=== PATIENT | female | born 1955 ===

== ENCOUNTER 2017-08-21 14:53 | Emergency (ER) | payer OTHER, MEDICAID ==
[2017-08-21 14:53] VITALS: BMI 30.2
[2017-08-21 15:46] VITALS: TEMP 98.4; O2SAT 97
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
[2017-08-21] MEDS ORDERED: Lidocaine 5% Patch TD STA (17:12)
[2017-08-21] MEDS ORDERED: Lidocaine 5% Patch TD ONE (17:22)
--- NOTE | 2017-08-21 18:07 | CT ---
PROCEDURE: CT HEAD WITHOUT CONTRAST. HISTORY: TRAUMA COMPARISON: None available. TECHNIQUE: Axial computed tomography images were obtained through the head/brain without intravenous contrast. Radiation dose: Total exam DLP = 764.22 mGy-cm. This CT exam was performed using one or more of the following dose reduction techniques: Automated exposure control, adjustment of the mA and/or kV according to patient size, and/or use of iterative reconstruction technique. FINDINGS: HEMORRHAGE: No intracranial hemorrhage. BRAIN: No mass effect or edema. The mendez-white matter differentiation appears intact. Please note that MRI with diffusion imaging is more sensitive in the detection of acute ischemic event. VENTRICLES: No hydrocephalus. CALVARIUM: Unremarkable. PARANASAL SINUSES: Limited visualization of the right maxillary sinus appears completely opacified. MASTOID AIR CELLS: Unremarkable as visualized. No inflammatory changes. OTHER FINDINGS: None. IMPRESSION: Limited visualization of the right maxillary sinus appears completely opacified. Correlate clinically. No acute intracranial pathology identified.
[2017-08-21 18:18] VITALS: BP 160/90; PULSE 69; RESP 20
--- NOTE | 2017-08-21 18:25 | RAD ---
PROCEDURE: Radiographs of the Lumbar Spine. HISTORY: TRAUMA COMPARISON: No prior. FINDINGS: BONES: Normal alignment. No listhesis. No fracture. DISC SPACES: Unremarkable. OTHER FINDINGS: None. IMPRESSION: Unremarkable radiographs of the lumbar spine. Concordant results with the preliminary interpretation rendered by the emergency department physician procedure.
--- NOTE | 2017-08-21 18:30 | CT ---
CT cervical spine without IV contrast Indication: Trauma Comparison: None available. Technique: Axial computed tomography images were obtained of the cervical spine without the use of intravenous contrast. Coronal and sagittal reformatted images were created and reviewed. This CT exam was performed using 1 or more of the falling dose reduction techniques: Automated exposure control, adjustment of the MAA and/or kV according to patient size, and/or use of iterative reconstruction technique. Radiation dose: Total exam DLP = 393.66 mGy-cm. Findings: Straightening of the normal cervical lordosis may be related to muscle spasm or positioning. Multilevel degenerative changes including intervertebral disc space narrowing osteophyte formation. There is no evidence of acute fracture or subluxation. The prevertebral soft tissues and spinolaminar lines appear intact. The lateral masses are preserved. The dens tip is intact. There is proper alignment of the lateral masses of C1 with the C2 vertebral body. Included portions of the thyroid gland demonstrates 2 mm right lower pole hypodensity. Included portions of lung apices appear clear. Impression: No evidence of acute fracture or subluxation. Straightening of the normal cervical lordosis may be related to muscle spasm or positioning. Multilevel degenerative changes. 2 mm right lower pole thyroid hypodensity, too small to characterize.
== END 2017-08-21 18:36 | disposition home or self-care (01) ==
LOC: C.ER 14:53
DX: S13.9XXA Sprain of joints and ligaments of unspecified parts of neck, initial encounter (principal); S33.5XXA Sprain of ligaments of lumbar spine, initial encounter; V89.0XXA Person injured in unspecified motor-vehicle accident, nontraffic, initial encounter; Y92.481 Parking lot as the place of occurrence of the external cause
CPT/HCPCS: 70450; 72100; 72125; 96372; 99284; J1885

== ENCOUNTER 2018-05-08 03:23 | Inpatient (IN) | payer MEDICAID ==
[2018-05-08 03:23] VITALS: BMI 30.2
[2018-05-08] MEDS ORDERED: Sodium Chloride 0.9% 1,000 ML IV ONE ×2 (04:00→05:09)
[2018-05-08 04:08] LABS: BASO # 0.1 K/uL (0.0-0.2); BASO % 0.6 % (0.0-2.0); EOS # 0.4 K/uL (0.0-0.7); EOS % 3.2 % (0.0-4.0); HEMOGLOBIN 15.1 g/dL (11.0-16.0); LYMPH # 5.5 K/uL (1.0-4.3); LYMPH % 49.2 % (20.0-40.0); MEAN CELL VOLUME 87.7 fL (81.0-99.0); MEAN CORPUSCULAR HEMOGLOBIN 29.5 pg (27.0-31.0); MEAN CORPUSCULAR HGB CONC 33.6 g/dL (33.0-37.0); MEAN PLATELET VOLUME 9.3 fL (7.2-11.7); MONO # 0.7 K/uL (0.0-0.8); MONO % 6.6 % (0.0-10.0); NEUT # 4.5 K/uL (1.8-7.0); NEUT % 40.4 % (50.0-75.0); NRBC % 0.1 % (0.0-2.0); RBC 5.11 Mil/uL (3.80-5.20); WHITE BLOOD COUNT 11.1 K/uL (4.8-10.8)
[2018-05-08 04:09] LABS: ALB/GLOB RATIO 1.5 (1.0-2.1); ALBUMIN 4.9 g/dL (3.5-5.0); ALT/SGPT 46 U/L (9-52); AST/SGOT 34 U/L (14-36); BLOOD UREA NITROGEN 16 mg/dL (7-17); CALCIUM 9.8 mg/dl (8.6-10.4); GFR NON-AFRICAN AMERICAN > 60
[2018-05-08 04:40] LABS: T3 1.97 nmol/L (1.49-2.60)
[2018-05-08] MEDS ORDERED: Digoxin 500 mcg/2ml (0.5 mg/2ml) Inj IVP STA (05:08)
[2018-05-08] MEDS ORDERED: Digoxin 500 mcg/2ml (0.5 mg/2ml) Inj ONE (05:18)
[2018-05-08] MEDS ORDERED: Sodium Chloride 0.9% 1,000 ML ONE (05:19)
[2018-05-08 05:23] VITALS: PULSE 170
[2018-05-08] MEDS ORDERED: Metoprolol 1 mg/ml Inj IVP STA (05:44)
[2018-05-08] MEDS ORDERED: Metoprolol 1 mg/ml Inj ONE (05:51)
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
--- NOTE | 2018-05-08 06:33 | C.PDOC ---
History Of Present Illness 62 y/o female presents to the ED complaining of palpitations, with sudden onset upon waking up this morning. Denies any associated chest pain, dizziness, SOB, or other complaints. States this has never happened to her in the past. No fever. No cough. Time Seen by Provider: 05/08/18 03:38 Chief Complaint (Nursing): Palpitations History Per: Patient History/Exam Limitations: no limitations Onset/Duration Of Symptoms: Mins Current Symptoms Are (Timing): Still Present Exacerbating Factor(s): Pos: None Past Medical History Reviewed: Historical Data, Nursing Documentation, Vital Signs Vital Signs: Last Vital Signs Temp 98.2 F 05/08/18 03:31 Pulse 67 05/08/18 06:22 Resp 12 05/08/18 06:22 BP 92/47 L 05/08/18 06:22 Pulse Ox 99 05/08/18 06:22 - Medical History PMH: Cardia Arrhythmia, Diabetes, HTN, Hyperlipidemia Family History: States: No Known Family Hx - Social History Hx Tobacco Use: No Hx Alcohol Use: No Hx Substance Use: No - Immunization History Hx Tetanus Toxoid Vaccination: No Hx Influenza Vaccination: No Hx Pneumococcal Vaccination: No Review Of Systems Except As Marked, All Systems Reviewed And Found Negative. Constitutional: Negative for: Fever, Chills Eyes: Negative for: Vision Change Cardiovascular: Positive for: Palpitations. Negative for: Chest Pain Respiratory: Negative for: Cough, Shortness of Breath Gastrointestinal: Negative for: Vomiting, Diarrhea Neurological: Negative for: Headache, Dizziness Physical Exam - Physical Exam Appears: Non-toxic, No Acute Distress Skin: Normal Color, Warm, Dry Head: Atraumatic, Normacephalic Eye(s): bilateral: Normal Inspection, PERRL, EOMI Neck: Normal ROM, Supple Chest: Symmetrical Cardiovascular: Rhythm Regular (but tachycardic), No Murmur Respiratory: Normal Breath Sounds, No Rales, No Rhonchi, No Wheezing Gastrointestinal/Abdominal: Soft, No Tenderness, No Distention Extremity: Bilateral: Atraumatic, Normal Color And Temperature Neurological/Psych: Oriented x3, Normal Speech ED Course And Treatment - Laboratory Results Result Diagrams: 05/08/18 04:01 05/08/18 04:01 O2 Sat by Pulse Oximetry: 99 (RA) Pulse Ox Interpretation: Normal Critical Care Time - Critical Care Note Total Time (in mins): 60 Documented critical care: time excludes all time spent performing seperately billable procedures. Medical Decision Making Medical Decision Making: Impression: Palpitations Initial Plan: --EKG --labs --chest x-ray --IVF and Cardizem --peak flow pre/post neb Initial EKG: SVT at 215 bpm Second EKG: rapid A Fib at 126 bpm Progress: 6:00am Dr. Montenegro in the ED, evaluating patient at bedside. Accepts pt to telemetry. Patient given Cardizem drip, Lopressor IVP, and digoxin IVP. Disposition - Disposition Disposition: HOSPITALIZED Disposition Time: 05:10 Condition: GUARDED - Clinical Impression Clinical Impression: Rapid atrial fibrillation, SVT (supraventricular tachycardia), Palpitations - Scribe Statement The provider has reviewed the documentation as recorded by the Scribe (Loretta Staton) Provider Attestation: All medical record entries made by the Scribe were at my direction and personally dictated by me. I have reviewed the chart and agree that the record accurately reflects my personal performance of the history, physical exam, medical decision making, and the department course for this patient. I have also personally directed, reviewed, and agree with the discharge instructions and disposition.
[2018-05-08] MEDS: (Novolin R) Insulin Human Regular 100 units/ml vial SC SCH ×4 (07:30→21:43)
--- NOTE | 2018-05-08 08:48 | CP.PCM.PN ---
Subjective - Date & Time of Evaluation Date of Evaluation: 05/08/18 Time of Evaluation: 08:48 - Subjective Subjective: PGY-[address] House. Patient seen and examined in ED. Patient complains of palpitations and chronic L hip pain. Patient denies SOB, chest pain, diaphresis, nausea, vomiting, fever, and chills. Objective - Vital Signs/Intake and Output Vital Signs (last 24 hours): Temp Pulse Resp BP Pulse Ox 98.2 F 152 H 18 110/76 100 05/08/18 03:31 05/08/18 08:34 05/08/18 08:34 05/08/18 08:34 05/08/18 08:34 - Medications Medications: Current Medications Enoxaparin Sodium (Lovenox) 60 mg SC Q12 DEVIN Diltiazem HCl 125 mg/ Dextrose 125 mls @ 5 mls/hr IV .Q24H DEVIN Last Admin: 05/08/18 08:07 Dose: 5 mls/hr Diltiazem HCl 125 mg/ Dextrose 125 mls @ 5 mls/hr IV .Q24H DEVIN; Protocol Last Admin: 05/08/18 08:43 Dose: Not Given Insulin Human Regular (Novolin R) 0 unit SC ACHS DEVIN; Protocol Last Admin: 05/08/18 07:30 Dose: Not Given Metoprolol Tartrate (Lopressor) 25 mg PO QID [facility] [id number] Ethyl Esters (Lovaza) 1 gm PO DAILY DEVIN Pantoprazole Sodium (Protonix Ec Tab) 40 mg PO DAILY DEVIN - Labs Labs: 05/08/18 04:01 05/08/18 04:01 - Head Exam Head Exam: ATRAUMATIC, NORMOCEPHALIC - Eye Exam Eye Exam: EOMI - ENT Exam ENT Exam: Mucous Membranes Moist - Neck Exam Neck Exam: Full ROM, Normal Inspection - Respiratory Exam Respiratory Exam: Clear to Ausculation Bilateral. absent: Rales, Rhonchi, Wheezes - Cardiovascular Exam Cardiovascular Exam: Irregular Rhythm, +S1, +S2 - GI/Abdominal Exam GI & Abdominal Exam: Soft. absent: Tenderness - Extremities Exam Extremities Exam: Full ROM, Tenderness. absent: Pedal Edema Additional comments: Left lumbar and L hip tenderness to palpation - Neurological Exam Neurological Exam: Alert, Awake, Oriented x3 - Psychiatric Exam Psychiatric exam: Normal Affect, Normal Mood - Skin Skin Exam: Diaphoretic, Intact, Normal Color, Warm Assessment and Plan - Assessment and Plan (Free Text) Plan: sun is a 62 year old female with past medical history of hypertension, diabetes mellitus, arthritis who presented to the emergency room for sudden onset of palpitations. Management as per ICU.
--- NOTE | 2018-05-08 08:56 | RAD ---
Chest x-ray single frontal view HISTORY: Chest pain. COMPARISON: None available. Findings: Patchy increased markings at the lung bases. Clinical correlation. Mild cardiomegaly. Venous congestion. Calcification at the aortic knob. Degenerative changes in the osseous structures. Impression: Patchy increased markings at the lung bases. Clinical correlation. Mild cardiomegaly. Venous congestion. Calcification at the aortic knob.
[2018-05-08] MEDS: Pantoprazole 40 mg EC Tab PO SCH (09:56)
[2018-05-08] MEDS: Omega-3-Acid Ethyl Esters 1 GM Cap PO SCH (09:56)
[2018-05-08] MEDS: Enoxaparin 60 mg Syringe SC SCH ×2 (09:56→22:13)
[2018-05-08] MEDS ORDERED: Enoxaparin 30 mg Syringe SC SCH (10:00)
--- NOTE | 2018-05-08 12:08 | CP.PCM.CON ---
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 she was started on metoprolol (dose?) and felt her symptoms were controlled. She didnt refill her last perscription and did not return to her [employer]. Symptoms returned soon after. %days since last metoprolol dose. pt complains of back pain and hip pain at present time. Denies CP or SOB at this time. Pt denies radiating pains to the jaw/ shoulder. Denies dizziness, headache, fever, chills, nausea, vomiting, sweating, abd pain. 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 Family History: Mother - Hypertension, TAVR, arrhythmia; Father - from [place] 26 years ago Past Patient History - Past Medical History & Family History Past Medical History?: Yes - Past Social History Smoking Status: Never Smoked - CARDIAC Hx Cardia Arrhythmia: Yes Hx Hypertension: Yes - PULMONARY Hx Respiratory Disorders: No - NEUROLOGICAL Hx Neurological Disorder: No - HEENT Hx HEENT Problems: Yes Other/Comment: HX: TORN EAR LOBE FROM EARING-REPAIRED - ENDOCRINE/METABOLIC Hx Endocrine Disorders: Yes Hx Diabetes Mellitus Type 2: Yes - INTEGUMENTARY Hx Dermatological Problems: Yes Other/Comment: HX: MASS OF NECK - PSYCHIATRIC Hx Substance Use: No - SURGICAL HISTORY Hx Surgeries: Yes Hx Hysterectomy: Yes Other/Comment: HX: REPAIR TORN EAR LOBE-PT. NOT SURE WHICH SIDE. - ANESTHESIA Hx Anesthesia: Yes Hx Anesthesia Reactions: No Hx Malignant Hyperthermia: No Meds Allergies/Adverse Reactions: Allergies Allergy/AdvReac Type Severity Reaction Status Date / Time No Known Allergies Allergy Verified 05/08/18 03:39 - Medications Medications: Current Medications Cyclobenzaprine HCl (Flexeril) 5 mg PO HS PRN PRN Reason: Muscle spasm Enoxaparin Sodium (Lovenox) 60 mg SC Q12 [facility] Last Admin: 05/08/18 09:56 Dose: 60 mg Diltiazem HCl 125 mg/ Dextrose 125 mls @ 5 mls/hr IV .Q24H [facility] Last Admin: 05/08/18 08:07 Dose: 5 mls/hr Insulin Human Regular (Novolin R) 0 unit SC ACHS [facility]; Protocol Last Admin: 05/08/18 07:30 Dose: Not Given Metoprolol Tartrate (Lopressor) 25 mg PO QID [facility] Last Admin: 05/08/18 09:57 Dose: 25 mg Qxeob-6-Nqnc Ethyl Esters (Lovaza) 1 gm PO DAILY [facility] Last Admin: 05/08/18 09:56 Dose: 1 gm Pantoprazole Sodium (Protonix Ec Tab) 40 mg PO DAILY [facility] Last Admin: 05/08/18 09:56 Dose: 40 mg Physical Exam - Constitutional Appears: Well, Non-toxic, No Acute Distress - Head Exam Head Exam: ATRAUMATIC, NORMAL INSPECTION - Eye Exam Eye Exam: EOMI, Normal appearance Pupil Exam: NORMAL ACCOMODATION - ENT Exam ENT Exam: Mucous Membranes Moist - Neck Exam Neck exam: Positive for: Normal Inspection. Negative for: Tenderness, Thyromegaly - Respiratory Exam Respiratory Exam: Clear to Auscultation Bilateral, NORMAL BREATHING PATTERN. absent: Wheezes, Respiratory Distress - Cardiovascular Exam Cardiovascular Exam: Irregular Rhythm, +S1, +S2 - GI/Abdominal Exam GI & Abdominal Exam: Soft. absent: Tenderness - Extremities Exam Extremities exam: Positive for: normal inspection, pedal pulses present. Nega tive for: pedal edema - Back Exam Back exam: muscle spasm (L/s mee paraspin spasm), paraspinal tenderness - Neurological Exam Neurological exam: Alert, CN II-XII Intact, Oriented x3 - Psychiatric Exam Psychiatric exam: Normal Affect, Normal Mood - Skin Skin Exam: Dry, Normal Color, Warm Results - Vital Signs Recent Vital Signs: Last Vital Signs Temp 98 F 05/08/18 11:25 Pulse 122 H 05/08/18 11:25 Resp 18 05/08/18 11:25 BP 92/68 L 10/02/18 11:25 Pulse Ox 99 05/08/18 11:25 - Labs Result Diagrams: 05/08/18 04:01 05/08/18 04:01 Labs: Laboratory Results - last 24 hr 05/08/18 05/08/18 05/08/18 04:01 04:01 07:10 WBC 11.1 H RBC 5.11 Hgb 15.1 Hct 44.8 MCV 87.7 MCH 29.5 MCHC 33.6 RDW 13.0 Plt Count 341 MPV 9.3 Neut % (Auto) 40.4 L Lymph % (Auto) 49.2 H [place] % (Auto) 6.6 Eos % (Auto) 3.2 Baso % (Auto) 0.6 Neut # (Auto) 4.5 Lymph # (Auto) 5.5 H [place] # (Auto) 0.7 Eos # (Auto) 0.4 Baso # (Auto) 0.1 Sodium 142 Potassium 4.0 Chloride 103 Carbon Dioxide 25 Anion Gap 19 BUN 16 Creatinine 0.6 L Est GFR ( Amer) > 60 Est GFR (Non-Af Amer) > 60 POC Glucose (mg/dL) 108 Random Glucose 116 H Calcium 9.8 Magnesium 2.2 Total Bilirubin 0.4 AST 34 ALT 46 Alkaline Phosphatase 118 Troponin I < 0.0120 Total Protein 8.2 Albumin 4.9 Globulin 3.3 Albumin/Globulin Ratio 1.5 Total T3 1.97 TSH 3rd Generation 6.97 H Assessment & Plan - Assessment and Plan (Free Text) Assessment: 62yo F with Sick sinus syndrome. Plan: Neuro: -AAOx3 -monitor mental status Pulm: -Maintain spO2 >90% -Nasal cannula PRN CardioVasc: -Dr Dowd recs: 1. The patient now is in nsr, with frequent atria tachycardia.. Will start oral cardezem. previous echo was normal. ASA for now, 325 mg 2. Pt is advised to have a sleep study after d/c from hospital. 3. If medication cannot control her arrhythmia, then she will be offered ablation. -Cardizem 60mg PO QID -currently hemodynamically stable -f/u EKG Heme: -Monitor H/H Renal: -monitor I&O -monitor and repleat electrolytes Endo: -Maintain euglycemia 140-180 blood sugar GI: -ptx PO -Pain control with Ketorolac and Lidoderm patches -HHD ID: -Afebrile -no leukocytosis DVT PPX: -SCDs -Lovenox 60mg q12 <Jasvir Patel - Last Filed: 05/08/18 18:58> Meds - Medications Medications: Current Medications Diltiazem HCl (Cardizem) 60 mg PO QID [facility] Last Admin: 05/08/18 17:06 Dose: 60 mg Enoxaparin Sodium (Lovenox) 60 mg SC Q12 [facility] Last Admin: 05/08/18 09:56 Dose: 60 mg Insulin Human Regular (Novolin R) 0 unit SC ACHS [facility]; Protocol Last Admin: 05/08/18 16:30 Dose: Not Given Ketorolac Tromethamine (Toradol) 30 mg IVP Q6 PRN PRN Reason: FOR PAIN Lidocaine (Lidoderm) 2 ea TD DAILY [facility] Last Admin: 05/08/18 17:47 Dose: 2 ea [id number]-8-[id number] Ethyl Esters (Lovaza) 1 gm PO DAILY [facility] Last Admin: 05/08/18 09:56 Dose: 1 gm Pantoprazole Sodium (Protonix Ec Tab) 40 mg PO DAILY [facility] Last Admin: 05/08/18 09:56 Dose: 40 mg Results - Vital Signs Recent Vital Signs: Last Vital Signs Temp 98.7 F 05/08/18 16:00 Pulse 95 H 05/08/18 17:55 Resp 16 05/08/18 17:55 BP 114/83 05/08/18 17:55 Pulse Ox 100 05/08/18 17:55 - Labs Result Diagrams: 05/08/18 04:01 05/08/18 04:01 Labs: Laboratory Results - last 24 hr 05/08/18 05/08/18 05/08/18 04:01 04:01 07:10 WBC 11.1 H RBC 5.11 Hgb 15.1 Hct 44.8 MCV 87.7 MCH 29.5 MCHC 33.6 RDW 13.0 Plt Count 341 MPV 9.3 Neut % (Auto) 40.4 L Lymph % (Auto) 49.2 H [place] % (Auto) 6.6 Eos % (Auto) 3.2 Baso % (Auto) 0.6 Neut # (Auto) 4.5 Lymph # (Auto) 5.5 H [place] # (Auto) 0.7 Eos # (Auto) 0.4 Baso # (Auto) 0.1 PT INR APTT D-Dimer, Quantitative Sodium 142 Potassium 4.0 Chloride 103 Carbon Dioxide 25 Anion Gap 19 BUN 16 Creatinine 0.6 L Est GFR ( Amer) > 60 Est GFR (Non-Af Amer) > 60 POC Glucose (mg/dL) 108 Random Glucose 116 H Calcium 9.8 Magnesium 2.2 Total Bilirubin 0.4 AST 34 ALT 46 Alkaline Phosphatase 118 Troponin I < 0.0120 Total Protein 8.2 Albumin 4.9 Globulin 3.3 Albumin/Globulin Ratio 1.5 Total T3 1.97 TSH 3rd Generation 6.97 H 05/08/18 05/08/18 11:47 12:41 WBC RBC Hgb Hct MCV MCH MCHC RDW Plt Count MPV Neut % (Auto) Lymph % (Auto) [place] % (Auto) Eos % (Auto) Baso % (Auto) Neut # (Auto) Lymph # (Auto) [place] # (Auto) Eos # (Auto) Baso # (Auto) PT 12.5 H INR 1.1 APTT 42 H D-Dimer, Quantitative < 200 Sodium Potassium Chloride Carbon Dioxide Anion Gap BUN Creatinine Est GFR ( Amer) Est GFR (Non-Af Amer) POC Glucose (mg/dL) 121 H Random Glucose Calcium Magnesium Total Bilirubin AST ALT Alkaline Phosphatase Troponin I Total Protein Albumin Globulin Albumin/Globulin Ratio Total T3 TSH 3rd Generation Attending/Attestation - Attestation I have personally seen and examined this patient.: Yes I have fully participated in the care of the patient.: Yes I have reviewed all pertinent clinical information: Yes Notes (Text): 05/08/18 18:57 Patient seen and examined 62-year-old female admitted to ICU with sick sinus syndrome Started on by mouth Cardizem by cardiology Hemodynamically stable Echocardiogram Transfer to telemetry
[2018-05-08 12:11] LABS: INR 1.1; PARTIAL THROMBOPLASTIN TIME 42 SECONDS (21-34); PROTHROMBIN TIME 12.5 SECONDS (9.7-12.2)
[2018-05-08 12:12] LABS: D DIMER < 200 ng/mlDDU (0-243)
--- NOTE | 2018-05-08 14:23 | CP.PCM.CON ---
History of Present Illness - History of Present Illness History of Present Illness: 62 year old woman who has seen Dr Joshi in the office for a complaint of palpitations. Work up so far demonstrated a normal echo and stress test, and no arrhythmia documented. The patent drinks occasional ETOH on the weekends, smokes a ladies' cigar every now and then, and has prediabetes. Last night, she developed very rapid fast heart beats, the likes of which she has never experienced before. In the ER, rapid atrial tachycardia was seen, and she received IV cardezem. Due to low BP the drip was stopped. Today she feels better, and the monitor shows nsr with frequent short atrial tach runs. Some brief runs demonstrate mobitz I av block, without prolonged pauses Pt claims that she does not have htn. She snores at night. has a thick neck is overweight. Review of Systems - Review of Systems All systems: reviewed and no additional remarkable complaints except (as above) Past Patient History - Past Medical History & Family History Past Medical History?: Yes - Past Social History Smoking Status: Never Smoked - CARDIAC Hx Cardia Arrhythmia: Yes Hx Hypertension: Yes - PULMONARY Hx Respiratory Disorders: No - NEUROLOGICAL Hx Neurological Disorder: No - HEENT Hx HEENT Problems: Yes Other/Comment: HX: TORN EAR LOBE FROM EARING-REPAIRED - ENDOCRINE/METABOLIC Hx Endocrine Disorders: Yes Hx Diabetes Mellitus Type 2: Yes - INTEGUMENTARY Hx Dermatological Problems: Yes Other/Comment: HX: MASS OF NECK - PSYCHIATRIC Hx Substance Use: No - SURGICAL HISTORY Hx Surgeries: Yes Hx Hysterectomy: Yes Other/Comment: HX: REPAIR TORN EAR LOBE-PT. NOT SURE WHICH SIDE. - ANESTHESIA Hx Anesthesia: Yes Hx Anesthesia Reactions: No Hx Malignant Hyperthermia: No Meds Allergies/Adverse Reactions: Allergies Allergy/AdvReac Type Severity Reaction Status Date / Time No Known Allergies Allergy Verified 05/08/18 03:39 - Medications Medications: Current Medications Cyclobenzaprine HCl (Flexeril) 5 mg PO HS PRN PRN Reason: Muscle spasm Enoxaparin Sodium (Lovenox) 60 mg SC Q12 [facility] Last Admin: 05/08/18 09:56 Dose: 60 mg Diltiazem HCl 125 mg/ Dextrose 125 mls @ 5 mls/hr IV .Q24H [facility] Last Admin: 05/08/18 08:07 Dose: 5 mls/hr Insulin Human Regular (Novolin R) 0 unit SC ACHS [facility]; Protocol Last Admin: 05/08/18 12:41 Dose: Not Given Metoprolol Tartrate (Lopressor) 25 mg PO QID [facility] Last Admin: 05/08/18 09:57 Dose: 25 mg Uyqdj-6-Dbxo Ethyl Esters (Lovaza) 1 gm PO DAILY [facility] Last Admin: 05/08/18 09:56 Dose: 1 gm Pantoprazole Sodium (Protonix Ec Tab) 40 mg PO DAILY [facility] Last Admin: 05/08/18 09:56 Dose: 40 mg Physical Exam - Constitutional Appears: Well - Head Exam Head Exam: ATRAUMATIC - Eye Exam Eye Exam: EOMI, Normal appearance - ENT Exam ENT Exam: Mucous Membranes Moist - Respiratory Exam Respiratory Exam: Clear to Auscultation Bilateral - Cardiovascular Exam Cardiovascular Exam: Irregular Rhythm - GI/Abdominal Exam GI & Abdominal Exam: Normal Bowel Sounds - Exam External exam: NORMAL EXTERNAL EXAM - Extremities Exam Extremities exam: Positive for: full ROM, normal inspection - Back Exam Back exam: NORMAL INSPECTION - Neurological Exam Neurological exam: Alert, Oriented x3, Reflexes Normal - Psychiatric Exam Psychiatric exam: Normal Affect, Normal Mood - Skin Skin Exam: Normal Color Results - Vital Signs Recent Vital Signs: Last Vital Signs Temp 98 F 05/08/18 12:07 Pulse 79 05/08/18 12:07 Resp 18 05/08/18 12:07 BP 108/74 05/08/18 12:07 Pulse Ox 99 05/08/18 12:07 - Labs Result Diagrams: 05/08/18 04:01 05/08/18 04:01 Labs: Laboratory Results - last 24 hr 05/08/18 05/08/18 05/08/18 04:01 04:01 07:10 WBC 11.1 H RBC 5.11 Hgb 15.1 Hct 44.8 MCV 87.7 MCH 29.5 MCHC 33.6 RDW 13.0 Plt Count 341 MPV 9.3 Neut % (Auto) 40.4 L Lymph % (Auto) 49.2 H [place] % (Auto) 6.6 Eos % (Auto) 3.2 Baso % (Auto) 0.6 Neut # (Auto) 4.5 Lymph # (Auto) 5.5 H [place] # (Auto) 0.7 Eos # (Auto) 0.4 Baso # (Auto) 0.1 PT INR APTT D-Dimer, Quantitative Sodium 142 Potassium 4.0 Chloride 103 Carbon Dioxide 25 Anion Gap 19 BUN 16 Creatinine 0.6 L Est GFR ( Amer) > 60 Est GFR (Non-Af Amer) > 60 POC Glucose (mg/dL) 108 Random Glucose 116 H Calcium 9.8 Magnesium 2.2 Total Bilirubin 0.4 AST 34 ALT 46 Alkaline Phosphatase 118 Troponin I < 0.0120 Total Protein 8.2 Albumin 4.9 Globulin 3.3 Albumin/Globulin Ratio 1.5 Total T3 1.97 TSH 3rd Generation 6.97 H 05/08/18 05/08/18 11:47 12:41 WBC RBC Hgb Hct MCV MCH MCHC RDW Plt Count MPV Neut % (Auto) Lymph % (Auto) [place] % (Auto) Eos % (Auto) Baso % (Auto) Neut # (Auto) Lymph # (Auto) [place] # (Auto) Eos # (Auto) Baso # (Auto) PT 12.5 H INR 1.1 APTT 42 H D-Dimer, Quantitative < 200 Sodium Potassium Chloride Carbon Dioxide Anion Gap BUN Creatinine Est GFR ( Amer) Est GFR (Non-Af Amer) POC Glucose (mg/dL) 121 H Random Glucose Calcium Magnesium Total Bilirubin AST ALT Alkaline Phosphatase Troponin I Total Protein Albumin Globulin Albumin/Globulin Ratio Total T3 TSH 3rd Generation - EKG Data EKG Interpreted by: Myself EKG shows normal: Sinus rhythm Assessment & Plan - Assessment and Plan (Free Text) Assessment: 1. The patient now is in nsr, with frequent atria tachycardia.. Will start oral cardezem. previous echo was normal. ASA for now, 3325 mg 2. Pt is advised to have a sleep study after d/c from hospital. 3. If medication cannot control her arrhythmia, then she will be offered ablation.
[2018-05-08] MEDS: Lidocaine 5% Patch TD SCH (17:47)
[2018-05-09] MEDS ORDERED: Sodium Chloride 0.9% 1,000 ML IV ONE (01:39)
[2018-05-09] MEDS ORDERED: DOPamine 400mg/250ml D5W 400 MG/250 ML BAG IV PRN ×2 (01:39→01:41)
[2018-05-09 03:26] LABS: BASO # 0.1 K/uL (0.0-0.2); BASO % 0.6 % (0.0-2.0); EOS # 0.3 K/uL (0.0-0.7); EOS % 2.7 % (0.0-4.0); HEMOGLOBIN 12.7 g/dL (11.0-16.0); LYMPH # 3.5 K/uL (1.0-4.3); LYMPH % 34.2 % (20.0-40.0); MEAN CELL VOLUME 88.6 fL (81.0-99.0); MEAN CORPUSCULAR HEMOGLOBIN 29.8 pg (27.0-31.0); MEAN CORPUSCULAR HGB CONC 33.6 g/dL (33.0-37.0); MONO # 0.7 K/uL (0.0-0.8); MONO % 6.5 % (0.0-10.0); NEUT # 5.8 K/uL (1.8-7.0); RBC 4.28 Mil/uL (3.80-5.20); RED CELL DISTRIBUTION WIDTH 12.8 % (11.5-14.5); WHITE BLOOD COUNT 10.3 K/uL (4.8-10.8)
[2018-05-09] MEDS ORDERED: Sodium Chloride 0.9% 1,000 ML IV SCH (03:30)
[2018-05-09 03:32] LABS: LDL CHOLESTEROL 95 mg/dL (0-129)
[2018-05-09 03:45] LABS: ALB/GLOB RATIO 1.3 (1.0-2.1); ALBUMIN 3.7 g/dL (3.5-5.0); ALT/SGPT 42 U/L (9-52); AST/SGOT 23 U/L (14-36); BLOOD UREA NITROGEN 15 mg/dL (7-17); CALCIUM 8.8 mg/dl (8.6-10.4); GFR NON-AFRICAN AMERICAN > 60; HDL CHOLESTEROL 33 mg/dL (30-70)
[2018-05-09] MEDS: (Novolin R) Insulin Human Regular 100 units/ml vial SC SCH ×4 (07:30→21:36)
[2018-05-09] MEDS: Enoxaparin 60 mg Syringe SC SCH (10:01)
[2018-05-09] MEDS: Pantoprazole 40 mg EC Tab PO SCH (10:01)
[2018-05-09] MEDS: Lidocaine 5% Patch TD SCH (10:01)
[2018-05-09] MEDS: Omega-3-Acid Ethyl Esters 1 GM Cap PO SCH (10:01)
--- NOTE | 2018-05-09 10:13 | CP.PCM.PN ---
Subjective - Date & Time of Evaluation Date of Evaluation: 05/09/18 Time of Evaluation: 10:09 - Subjective Subjective: The pt was hypotensive last night, BP systolic 60, with bradycrdia in the 40's A search for the ecg strips from this time has proved futile. pt received IV dopamine and pt had recurrent A tach. Pt is now in NSR, off dopaine. Echo is normal. Objective - Vital Signs/Intake and Output Vital Signs (last 24 hours): Temp Pulse Resp BP Pulse Ox 98.3 F 65 14 126/74 100 05/09/18 08:00 05/09/18 08:02 05/09/18 08:02 05/09/18 08:02 05/09/18 08:02 Intake and Output: 05/09/18 05/09/18 06:59 18:59 Intake Total 1433.2 200 Output Total 500 400 Balance 933.2 -200 - Medications Medications: Current Medications Enoxaparin Sodium (Lovenox) 60 mg SC Q12 [facility] Last Admin: 05/09/18 10:01 Dose: 60 mg Dopamine HCl/Dextrose (Dopamine 400mg/250ml D5w) 400 mg in 250 mls @ 7.144 mls/hr IV .Q24H [facility]; Protocol PRN Reason: PRN Last Titration: 05/09/18 03:00 Dose: 0 mcg/kg/min, 0 mls/hr Sodium Chloride (Sodium Chloride 0.9%) 1,000 mls @ 100 mls/hr IV .Q10H [facility] Last Admin: 05/09/18 03:00 Dose: 100 mls/hr Insulin Human Regular (Novolin R) 0 unit SC ACHS [facility]; Protocol Last Admin: 05/09/18 07:30 Dose: Not Given Ketorolac Tromethamine (Toradol) 30 mg IVP Q6 PRN PRN Reason: FOR PAIN Lidocaine (Lidoderm) 2 ea TD DAILY [facility] Last Admin: 05/09/18 10:01 Dose: 2 ea Aumlk-4-Lnco Ethyl Esters (Lovaza) 1 gm PO DAILY [facility] Last Admin: 05/09/18 10:01 Dose: 1 gm Pantoprazole Sodium (Protonix Ec Tab) 40 mg PO DAILY [facility] Last Admin: 05/09/18 10:01 Dose: 40 mg - Labs Labs: 05/09/18 03:06 05/09/18 03:06 PT 12.5 SECONDS (9.7-12.2) H 05/08/18 11:47 INR 1.1 05/08/18 11:47 APTT 42 SECONDS (21-34) H 05/08/18 11:47 - Constitutional Appears: Well - Eye Exam Eye Exam: EOMI - ENT Exam ENT Exam: Mucous Membranes Moist - Neck Exam Neck Exam: Full ROM - Respiratory Exam Respiratory Exam: NORMAL BREATHING PATTERN - Cardiovascular Exam Cardiovascular Exam: REGULAR RHYTHM - GI/Abdominal Exam GI & Abdominal Exam: Normal Bowel Sounds - Extremities Exam Extremities Exam: Full ROM, Normal Inspection - Back Exam Back Exam: NORMAL INSPECTION - Neurological Exam Neurological Exam: Alert, Awake, Normal Gait, Oriented x3 - Psychiatric Exam Psychiatric exam: Normal Affect Assessment and Plan - Assessment and Plan (Free Text) Assessment: 1. Atrial tachycardia, then bradycardia with hypotension. Cannot control patients rhythm with meds. Pt will agree to transfer for ablation. Stop all cardiac meds for now pending EP mapping.
--- NOTE | 2018-05-09 12:12 | CP.CCUPN ---
<Pedro Almendarez - Last Filed: 05/09/18 18:02> CCU Subjective - Physician Review Subjective (Free Text): 05/09/18 12:08 Pt seen and examined at [facility]. pt has no new complaints this morning. Pt had a hypotensive episode last night 60/47 bp requiring one dose of Dopa 400 @ 3mc. Pt responded with RVRs so dopa was stopped after 1 dose. pt feeling well now, denies cp sob nv fc diZZINESS. CCU Objective - Vital Signs / Intake & Output Vital Signs (Last 4 hours): Vital Signs Pulse Resp BP Pulse Ox 05/09/18 11:02 72 16 129/92 H 97 05/09/18 11:00 68 13 100 05/09/18 10:32 74 16 132/83 100 05/09/18 10:02 80 19 149/83 100 05/09/18 10:00 77 17 100 05/09/18 09:58 74 14 145/82 100 05/09/18 09:32 75 135/72 100 05/09/18 09:02 87 17 130/76 100 05/09/18 08:32 77 22 127/85 100 Intake and Output (Last 8hrs): Intake & Output 05/08/18 05/09/18 05/09/18 22:59 06:59 14:59 Intake Total 480 1313.2 760 Output Total 500 1550 Balance 480 813.2 -790 Weight 143 lb 9.6 oz Intake: IV 7.1 Intake, IV Amount 1306.1 300 Left Antecubital 1299 300 Right Forearm 7.1 Oral 480 0 460 Output: Urine 500 1550 Urine, Voided 500 1550 Other: # Voids Urine, Voided 0 1 1 - Physical Exam Other physical findings (Free Text): - Constitutional Appears: Well, Non-toxic, No Acute Distress - Head Exam Head Exam: ATRAUMATIC, NORMAL INSPECTION - Eye Exam Eye Exam: EOMI, Normal appearance Pupil Exam: NORMAL ACCOMODATION - ENT Exam ENT Exam: Mucous Membranes Moist - Neck Exam Neck exam: Positive for: Normal Inspection. Negative for: Tenderness, Thyromegaly - Respiratory Exam Respiratory Exam: Clear to Auscultation Bilateral, NORMAL BREATHING PATTERN. absent: Wheezes, Respiratory Distress - Cardiovascular Exam Cardiovascular Exam: Irregular Rhythm, +S1, +S2 - GI/Abdominal Exam GI & Abdominal Exam: Soft. absent: Tenderness - Extremities Exam Extremities exam: Positive for: normal inspection, pedal pulses present. Negative for: pedal edema - Back Exam Back exam: muscle spasm (L/s mee paraspin spasm), paraspinal tenderness - Neurological Exam Neurological exam: Alert, CN II-XII Intact, Oriented x3 - Psychiatric Exam Psychiatric exam: Normal Affect, Normal Mood - Skin Skin Exam: Dry, Normal Color, Warm - Medications Active Medications: Active Medications Generic Name Dose Route Start Last Admin Trade Name Freq PRN Reason Stop Dose Admin Enoxaparin Sodium 60 mg 05/08/18 10:00 05/09/18 10:01 Lovenox SC 60 mg Q12 DEVIN Administration Dopamine HCl/Dextrose 400 mg in 250 mls @ 7.144 mls/hr 05/09/18 01:41 05/09/18 03:00 Dopamine 400mg/250ml D5w IV 0 mcg/kg/min .Q24H PRN 0 mls/hr PRN Titration Protocol 3 MCG/KG/MIN Insulin Human Regular 0 unit 05/08/18 07:30 05/09/18 07:30 Novolin R SC Not Given ACHS DEVIN Protocol Ketorolac Tromethamine 30 mg 05/08/18 18:00 Toradol IVP Q6 PRN FOR PAIN Lidocaine 2 ea 05/08/18 17:15 05/09/18 10:01 Lidoderm TD 2 ea DAILY DEVIN Administration Nlrbk-4-Ibig Ethyl Esters 1 gm 05/08/18 10:00 05/09/18 10:01 Lovaza PO 1 gm DAILY DEVIN Administration Pantoprazole Sodium 40 mg 05/08/18 10:00 05/09/18 10:01 Protonix Ec Tab PO 40 mg DAILY DEVIN Administration - Patient Studies Lab Studies: Lab Studies 05/09/18 05/09/18 05/09/18 Range/Units 11:14 07:53 07:23 WBC (4.8-10.8) K/uL RBC (3.80-5.20) Mil/uL Hgb (11.0-16.0) g/dL Hct (34.0-47.0) % MCV (81.0-99.0) fL MCH (27.0-31.0) pg MCHC (33.0-37.0) g/dL RDW (11.5-14.5) % Plt Count (130-400) K/uL MPV (7.2-11.7) fL Neut % (Auto) (50.0-75.0) % Lymph % (Auto) (20.0-40.0) % [place] % (Auto) (0.0-10.0) % Eos % (Auto) (0.0-4.0) % Baso % (Auto) (0.0-2.0) % Neut # (Auto) (1.8-7.0) K/uL Lymph # (Auto) (1.0-4.3) K/uL [place] # (Auto) (0.0-0.8) K/uL Eos # (Auto) (0.0-0.7) K/uL Baso # (Auto) (0.0-0.2) K/uL PT (9.7-12.2) SECONDS INR APTT (21-34) SECONDS D-Dimer, Quantitative (0-243) ng/mlDDU Sodium (132-148) mmol/L Potassium (3.6-5.2) mmol/L Chloride (98-107) mmol/L Carbon Dioxide (22-30) mmol/L Anion Gap (10-20) BUN (7-17) mg/dL Creatinine (0.7-1.2) mg/dL Est GFR ( Amer) Est GFR (Non-Af Amer) POC Glucose (mg/dL) 104 88 (65-110) mg/dL Random Glucose (65-105) mg/dL Hemoglobin A1c (4.2-6.5) % Calcium (8.6-10.4) mg/dl Phosphorus (2.5-4.5) mg/dL Magnesium (1.6-2.3) mg/dL Total Bilirubin (0.2-1.3) mg/dL AST (14-36) U/L ALT (9-52) U/L Alkaline Phosphatase (38-126) U/L Total Protein (6.3-8.3) g/dL Albumin (3.5-5.0) g/dL Globulin (2.2-3.9) gm/dL Albumin/Globulin Ratio (1.0-2.1) Triglycerides (0-149) mg/dL Cholesterol (0-199) mg/dL LDL Cholesterol Direct (0-129) mg/dL HDL Cholesterol (30-70) mg/dL Free T4 0.81 (0.78-2.19) ng/dL 05/09/18 05/09/18 05/09/18 Range/Units 03:06 03:06 03:06 WBC 10.3 (4.8-10.8) K/uL RBC 4.28 (3.80-5.20) Mil/uL Hgb 12.7 D (11.0-16.0) g/dL Hct 37.9 (34.0-47.0) % MCV 88.6 (81.0-99.0) fL MCH 29.8 (27.0-31.0) pg MCHC 33.6 (33.0-37.0) g/dL RDW 12.8 (11.5-14.5) % Plt Count 266 (130-400) K/uL MPV 9.0 (7.2-11.7) fL Neut % (Auto) 56.0 (50.0-75.0) % Lymph % (Auto) 34.2 (20.0-40.0) % [place] % (Auto) 6.5 (0.0-10.0) % Eos % (Auto) 2.7 (0.0-4.0) % Baso % (Auto) 0.6 (0.0-2.0) % Neut # (Auto) 5.8 (1.8-7.0) K/uL Lymph # (Auto) 3.5 (1.0-4.3) K/uL [place] # (Auto) 0.7 (0.0-0.8) K/uL Eos # (Auto) 0.3 (0.0-0.7) K/uL Baso # (Auto) 0.1 (0.0-0.2) K/uL PT (9.7-12.2) SECONDS INR APTT (21-34) SECONDS D-Dimer, Quantitative (0-243) ng/mlDDU Sodium 144 (132-148) mmol/L Potassium 4.5 (3.6-5.2) mmol/L Chloride 108 H (98-107) mmol/L Carbon Dioxide 27 (22-30) mmol/L Anion Gap 14 (10-20) BUN 15 (7-17) mg/dL Creatinine 0.8 (0.7-1.2) mg/dL Est GFR ( Amer) > 60 Est GFR (Non-Af Amer) > 60 POC Glucose (mg/dL) (65-110) mg/dL Random Glucose 121 H (65-105) mg/dL Hemoglobin A1c 5.9 (4.2-6.5) % Calcium 8.8 (8.6-10.4) mg/dl Phosphorus 3.1 (2.5-4.5) mg/dL Magnesium 2.1 (1.6-2.3) mg/dL Total Bilirubin 0.3 (0.2-1.3) mg/dL AST 23 (14-36) U/L ALT 42 (9-52) U/L Alkaline Phosphatase 74 (38-126) U/L Total Protein 6.5 (6.3-8.3) g/dL Albumin 3.7 (3.5-5.0) g/dL Globulin 2.8 (2.2-3.9) gm/dL Albumin/Globulin Ratio 1.3 (1.0-2.1) Triglycerides 253 H (0-149) mg/dL Cholesterol 159 (0-199) mg/dL LDL Cholesterol Direct 95 (0-129) mg/dL HDL Cholesterol 33 (30-70) mg/dL Free T4 (0.78-2.19) ng/dL 05/08/18 05/08/18 05/08/18 Range/Units 21:14 16:16 12:41 WBC (4.8-10.8) K/uL RBC (3.80-5.20) Mil/uL Hgb (11.0-16.0) g/dL Hct (34.0-47.0) % MCV (81.0-99.0) fL MCH (27.0-31.0) pg MCHC (33.0-37.0) g/dL RDW (11.5-14.5) % Plt Count (130-400) K/uL MPV (7.2-11.7) fL Neut % (Auto) (50.0-75.0) % Lymph % (Auto) (20.0-40.0) % [place] % (Auto) (0.0-10.0) % Eos % (Auto) (0.0-4.0) % Baso % (Auto) (0.0-2.0) % Neut # (Auto) (1.8-7.0) K/uL Lymph # (Auto) (1.0-4.3) K/uL [place] # (Auto) (0.0-0.8) K/uL Eos # (Auto) (0.0-0.7) K/uL Baso # (Auto) (0.0-0.2) K/uL PT (9.7-12.2) SECONDS INR APTT (21-34) SECONDS D-Dimer, Quantitative (0-243) ng/mlDDU Sodium (132-148) mmol/L Potassium (3.6-5.2) mmol/L Chloride (98-107) mmol/L Carbon Dioxide (22-30) mmol/L Anion Gap (10-20) BUN (7-17) mg/dL Creatinine (0.7-1.2) mg/dL Est GFR ( Amer) Est GFR (Non-Af Amer) POC Glucose (mg/dL) 108 101 121 H (65-110) mg/dL Random Glucose (65-105) mg/dL Hemoglobin A1c (4.2-6.5) % Calcium (8.6-10.4) mg/dl Phosphorus (2.5-4.5) mg/dL Magnesium (1.6-2.3) mg/dL Total Bilirubin (0.2-1.3) mg/dL AST (14-36) U/L ALT (9-52) U/L Alkaline Phosphatase (38-126) U/L Total Protein (6.3-8.3) g/dL Albumin (3.5-5.0) g/dL Globulin (2.2-3.9) gm/dL Albumin/Globulin Ratio (1.0-2.1) Triglycerides (0-149) mg/dL Cholesterol (0-199) mg/dL LDL Cholesterol Direct (0-129) mg/dL HDL Cholesterol (30-70) mg/dL Free T4 (0.78-2.19) ng/dL 05/08/18 Range/Units 11:47 WBC (4.8-10.8) K/uL RBC (3.80-5.20) Mil/uL Hgb (11.0-16.0) g/dL Hct (34.0-47.0) % MCV (81.0-99.0) fL MCH (27.0-31.0) pg MCHC (33.0-37.0) g/dL RDW (11.5-14.5) % Plt Count (130-400) K/uL MPV (7.2-11.7) fL Neut % (Auto) (50.0-75.0) % Lymph % (Auto) (20.0-40.0) % [place] % (Auto) (0.0-10.0) % Eos % (Auto) (0.0-4.0) % Baso % (Auto) (0.0-2.0) % Neut # (Auto) (1.8-7.0) K/uL Lymph # (Auto) (1.0-4.3) K/uL [place] # (Auto) (0.0-0.8) K/uL Eos # (Auto) (0.0-0.7) K/uL Baso # (Auto) (0.0-0.2) K/uL PT 12.5 H (9.7-12.2) SECONDS INR 1.1 APTT 42 H (21-34) SECONDS D-Dimer, Quantitative < 200 (0-243) ng/mlDDU Sodium (132-148) mmol/L Potassium (3.6-5.2) mmol/L Chloride (98-107) mmol/L Carbon Dioxide (22-30) mmol/L Anion Gap (10-20) BUN (7-17) mg/dL Creatinine (0.7-1.2) mg/dL Est GFR ( Amer) Est GFR (Non-Af Amer) POC Glucose (mg/dL) (65-110) mg/dL Random Glucose (65-105) mg/dL Hemoglobin A1c (4.2-6.5) % Calcium (8.6-10.4) mg/dl Phosphorus (2.5-4.5) mg/dL Magnesium (1.6-2.3) mg/dL Total Bilirubin (0.2-1.3) mg/dL AST (14-36) U/L ALT (9-52) U/L Alkaline Phosphatase (38-126) U/L Total Protein (6.3-8.3) g/dL Albumin (3.5-5.0) g/dL Globulin (2.2-3.9) gm/dL Albumin/Globulin Ratio (1.0-2.1) Triglycerides (0-149) mg/dL Cholesterol (0-199) mg/dL LDL Cholesterol Direct (0-129) mg/dL HDL Cholesterol (30-70) mg/dL Free T4 (0.78-2.19) ng/dL Laboratory Results - last 24 hr 05/08/18 05/08/18 05/08/18 11:47 12:41 16:16 WBC RBC Hgb Hct MCV MCH MCHC RDW Plt Count MPV Neut % (Auto) Lymph % (Auto) [place] % (Auto) Eos % (Auto) Baso % (Auto) Neut # (Auto) Lymph # (Auto) [place] # (Auto) Eos # (Auto) Baso # (Auto) PT 12.5 H INR 1.1 APTT 42 H D-Dimer, Quantitative < 200 Sodium Potassium Chloride Carbon Dioxide Anion Gap BUN Creatinine Est GFR ( Amer) Est GFR (Non-Af Amer) POC Glucose (mg/dL) 121 H 101 Random Glucose Hemoglobin A1c Calcium Phosphorus Magnesium Total Bilirubin AST ALT Alkaline Phosphatase Total Protein Albumin Globulin Albumin/Globulin Ratio Triglycerides Cholesterol LDL Cholesterol Direct HDL Cholesterol Free T4 05/08/18 05/09/18 05/09/18 21:14 03:06 03:06 WBC 10.3 RBC 4.28 Hgb 12.7 D Hct 37.9 MCV 88.6 MCH 29.8 MCHC 33.6 RDW 12.8 Plt Count 266 MPV 9.0 Neut % (Auto) 56.0 Lymph % (Auto) 34.2 [place] % (Auto) 6.5 Eos % (Auto) 2.7 Baso % (Auto) 0.6 Neut # (Auto) 5.8 Lymph # (Auto) 3.5 [place] # (Auto) 0.7 Eos # (Auto) 0.3 Baso # (Auto) 0.1 PT INR APTT D-Dimer, Quantitative Sodium 144 Potassium 4.5 Chloride 108 H Carbon Dioxide 27 Anion Gap 14 BUN 15 Creatinine 0.8 Est GFR ( Amer) > 60 Est GFR (Non-Af Amer) > 60 POC Glucose (mg/dL) 108 Random Glucose 121 H Hemoglobin A1c Calcium 8.8 Phosphorus 3.1 Magnesium 2.1 Total Bilirubin 0.3 AST 23 ALT 42 Alkaline Phosphatase 74 Total Protein 6.5 Albumin 3.7 Globulin 2.8 Albumin/Globulin Ratio 1.3 Triglycerides 253 H Cholesterol 159 LDL Cholesterol Direct 95 HDL Cholesterol 33 Free T4 05/09/18 05/09/18 05/09/18 03:06 07:23 07:53 WBC RBC Hgb Hct MCV MCH MCHC RDW Plt Count MPV Neut % (Auto) Lymph % (Auto) [place] % (Auto) Eos % (Auto) Baso % (Auto) Neut # (Auto) Lymph # (Auto) [place] # (Auto) Eos # (Auto) Baso # (Auto) PT INR APTT D-Dimer, Quantitative Sodium Potassium Chloride Carbon Dioxide Anion Gap BUN Creatinine Est GFR ( Amer) Est GFR (Non-Af Amer) POC Glucose (mg/dL) 88 Random Glucose Hemoglobin A1c 5.9 Calcium Phosphorus Magnesium Total Bilirubin AST ALT Alkaline Phosphatase Total Protein Albumin Globulin Albumin/Globulin Ratio Triglycerides Cholesterol LDL Cholesterol Direct HDL Cholesterol Free T4 0.81 05/09/18 11:14 WBC RBC Hgb Hct MCV MCH MCHC RDW Plt Count MPV Neut % (Auto) Lymph % (Auto) [place] % (Auto) Eos % (Auto) Baso % (Auto) Neut # (Auto) Lymph # (Auto) [place] # (Auto) Eos # (Auto) Baso # (Auto) PT INR APTT D-Dimer, Quantitative Sodium Potassium Chloride Carbon Dioxide Anion Gap BUN Creatinine Est GFR ( Amer) Est GFR (Non-Af Amer) POC Glucose (mg/dL) 104 Random Glucose Hemoglobin A1c Calcium Phosphorus Magnesium Total Bilirubin AST ALT Alkaline Phosphatase Total Protein Albumin Globulin Albumin/Globulin Ratio Triglycerides Cholesterol LDL Cholesterol Direct HDL Cholesterol Free T4 Fingerstick Blood Sugar Results: 88 Review of Systems - Constitutional Constitutional: absent: Fever, Chills - EENT Eyes: absent: Change in Vision - Cardiovascular Cardiovascular: absent: Chest Pain, Diaphoresis, Dyspnea, Pain Radiating to Arm/Neck/Jaw, Leg Edema, Pedal Edema - Respiratory Respiratory: UNREMARKABLE - Gastrointestinal Gastrointestinal: UNREMARKABLE - Musculoskeletal Musculoskeletal: Myalgias (lumbar paraspinals) - Neurological Neurological: absent: Dizziness, Numbness, Focal Weakness, Headaches, Syncope - Psychiatric Psychiatric: UNREMARKABLE - Endocrine Endocrine: UNREMARKABLE - Hematologic/Lymphatic Hematologic: UNREMARKABLE Critical Care Progress Note - Nutrition Nutrition: Nutrition Category Date Time Status Heart Healthy Diet [DIET] Diets 05/08/18 Breakfast Active Assessment/Plan - Assessment and Plan (Free Text) Assessment: 62yo F with Sick sinus syndrome. pt pending ablation Plan: Neuro: -AAOx3 -monitor mental status Pulm: -Maintain spO2 >90% -Nasal cannula PRN CardioVasc: -Dr Dowd recs: Atrial tachycardia, then bradycardia with hypotension. Cannot control patients rhythm with meds. Pt will agree to transfer for ablation. Stop all cardiac meds for now pending EP mapping. -Cardizem 60mg PO QID on HOLD -currently hemodynamically stable -f/u EKG Heme: -Monitor H/H Renal: -monitor I&O -monitor and repleat electrolytes Endo: -Maintain euglycemia 140-180 blood sugar -TSH: 6.97 -T4: 0.81 -T3: 1.97 GI: -ptx PO -Pain control with Ketorolac and Lidoderm patches -HHD ID: -Afebrile -no leukocytosis DVT PPX: -SCDs -Lovenox 60mg q12 <Jasvir Patel S - Last Filed: 05/09/18 18:08> CCU Subjective - Physician Review Critical Care Time Spent (in minutes): 40 CCU Objective - Vital Signs / Intake & Output Vital Signs (Last 4 hours): Vital Signs Temp Pulse Resp BP Pulse Ox 05/09/18 16:00 98.9 F 64 18 100 05/09/18 15:26 76 134/90 99 05/09/18 15:00 64 100 05/09/18 14:25 77 129/78 99 05/09/18 14:22 76 119/86 99 Intake and Output (Last 8hrs): Intake & Output 05/09/18 05/09/18 05/09/18 06:59 14:59 22:59 Intake Total 1313.2 1000 0 Output Total 500 1550 Balance 813.2 -550 0 Weight 143 lb 9.6 oz Intake: IV 7.1 Intake, IV Amount 1306.1 300 Left Antecubital 1299 300 Right Forearm 7.1 Oral 0 700 0 Output: Urine 500 1550 Urine, Voided 500 1550 Other: # Voids Urine, Voided 1 1 - Medications Active Medications: Active Medications Generic Name Dose Route Start Last Admin Trade Name Freq PRN Reason Stop Dose Admin Enoxaparin Sodium 60 mg 05/08/18 10:00 05/09/18 10:01 Lovenox SC 60 mg Q12 DEVIN Administration Dopamine HCl/Dextrose 400 mg in 250 mls @ 7.144 mls/hr 05/09/18 01:41 05/09/18 03:00 Dopamine 400mg/250ml D5w IV 0 mcg/kg/min .Q24H PRN 0 mls/hr PRN Titration Protocol 3 MCG/KG/MIN Insulin Human Regular 0 unit 05/08/18 07:30 05/09/18 16:36 Novolin R SC Not Given ACHS DEVIN Protocol Ketorolac Tromethamine 30 mg 05/08/18 18:00 Toradol IVP Q6 PRN FOR PAIN Lidocaine 2 ea 05/08/18 17:15 05/09/18 10:01 Lidoderm TD 2 ea DAILY DEVIN Administration Qlxvl-4-Pqzp Ethyl Esters 1 gm 05/08/18 10:00 05/09/18 10:01 Lovaza PO 1 gm DAILY DEVIN Administration Pantoprazole Sodium 40 mg 05/08/18 10:00 05/09/18 10:01 Protonix Ec Tab PO 40 mg DAILY DEVIN Administration - Patient Studies Lab Studies: Microbiology Studies 05/08/18 14:46 MRSA Culture (Admit) - Final Naris MRSA NOT DETECTED Lab Studies 05/09/18 05/09/18 05/09/18 Range/Units 16:17 11:14 07:53 WBC (4.8-10.8) K/uL RBC (3.80-5.20) Mil/uL Hgb (11.0-16.0) g/dL Hct (34.0-47.0) % MCV (81.0-99.0) fL MCH (27.0-31.0) pg MCHC (33.0-37.0) g/dL RDW (11.5-14.5) % Plt Count (130-400) K/uL MPV (7.2-11.7) fL Neut % (Auto) (50.0-75.0) % Lymph % (Auto) (20.0-40.0) % [place] % (Auto) (0.0-10.0) % Eos % (Auto) (0.0-4.0) % Baso % (Auto) (0.0-2.0) % Neut # (Auto) (1.8-7.0) K/uL Lymph # (Auto) (1.0-4.3) K/uL [place] # (Auto) (0.0-0.8) K/uL Eos # (Auto) (0.0-0.7) K/uL Baso # (Auto) (0.0-0.2) K/uL Sodium (132-148) mmol/L Potassium (3.6-5.2) mmol/L Chloride (98-107) mmol/L Carbon Dioxide (22-30) mmol/L Anion Gap (10-20) BUN (7-17) mg/dL Creatinine (0.7-1.2) mg/dL Est GFR ( Amer) Est GFR (Non-Af Amer) POC Glucose (mg/dL) 86 104 (65-110) mg/dL Random Glucose (65-105) mg/dL Hemoglobin A1c (4.2-6.5) % Calcium (8.6-10.4) mg/dl Phosphorus (2.5-4.5) mg/dL Magnesium (1.6-2.3) mg/dL Total Bilirubin (0.2-1.3) mg/dL AST (14-36) U/L ALT (9-52) U/L Alkaline Phosphatase (38-126) U/L Total Protein (6.3-8.3) g/dL Albumin (3.5-5.0) g/dL Globulin (2.2-3.9) gm/dL Albumin/Globulin Ratio (1.0-2.1) Triglycerides (0-149) mg/dL Cholesterol (0-199) mg/dL LDL Cholesterol Direct (0-129) mg/dL HDL Cholesterol (30-70) mg/dL Free T4 0.81 (0.78-2.19) ng/dL 05/09/18 05/09/18 05/09/18 Range/Units 07:23 03:06 03:06 WBC (4.8-10.8) K/uL RBC (3.80-5.20) Mil/uL Hgb (11.0-16.0) g/dL Hct (34.0-47.0) % MCV (81.0-99.0) fL MCH (27.0-31.0) pg MCHC (33.0-37.0) g/dL RDW (11.5-14.5) % Plt Count (130-400) K/uL MPV (7.2-11.7) fL Neut % (Auto) (50.0-75.0) % Lymph % (Auto) (20.0-40.0) % [place] % (Auto) (0.0-10.0) % Eos % (Auto) (0.0-4.0) % Baso % (Auto) (0.0-2.0) % Neut # (Auto) (1.8-7.0) K/uL Lymph # (Auto) (1.0-4.3) K/uL [place] # (Auto) (0.0-0.8) K/uL Eos # (Auto) (0.0-0.7) K/uL Baso # (Auto) (0.0-0.2) K/uL Sodium 144 (132-148) mmol/L Potassium 4.5 (3.6-5.2) mmol/L Chloride 108 H (98-107) mmol/L Carbon Dioxide 27 (22-30) mmol/L Anion Gap 14 (10-20) BUN 15 (7-17) mg/dL Creatinine 0.8 (0.7-1.2) mg/dL Est GFR ( Amer) > 60 Est GFR (Non-Af Amer) > 60 POC Glucose (mg/dL) 88 (65-110) mg/dL Random Glucose 121 H (65-105) mg/dL Hemoglobin A1c 5.9 (4.2-6.5) % Calcium 8.8 (8.6-10.4) mg/dl Phosphorus 3.1 (2.5-4.5) mg/dL Magnesium 2.1 (1.6-2.3) mg/dL Total Bilirubin 0.3 (0.2-1.3) mg/dL AST 23 (14-36) U/L ALT 42 (9-52) U/L Alkaline Phosphatase 74 (38-126) U/L Total Protein 6.5 (6.3-8.3) g/dL Albumin 3.7 (3.5-5.0) g/dL Globulin 2.8 (2.2-3.9) gm/dL Albumin/Globulin Ratio 1.3 (1.0-2.1) Triglycerides 253 H (0-149) mg/dL Cholesterol 159 (0-199) mg/dL LDL Cholesterol Direct 95 (0-129) mg/dL HDL Cholesterol 33 (30-70) mg/dL Free T4 (0.78-2.19) ng/dL 05/09/18 05/08/18 05/08/18 Range/Units 03:06 21:14 16:16 WBC 10.3 (4.8-10.8) K/uL RBC 4.28 (3.80-5.20) Mil/uL Hgb 12.7 D (11.0-16.0) g/dL Hct 37.9 (34.0-47.0) % MCV 88.6 (81.0-99.0) fL MCH 29.8 (27.0-31.0) pg MCHC 33.6 (33.0-37.0) g/dL RDW 12.8 (11.5-14.5) % Plt Count 266 (130-400) K/uL MPV 9.0 (7.2-11.7) fL Neut % (Auto) 56.0 (50.0-75.0) % Lymph % (Auto) 34.2 (20.0-40.0) % [place] % (Auto) 6.5 (0.0-10.0) % Eos % (Auto) 2.7 (0.0-4.0) % Baso % (Auto) 0.6 (0.0-2.0) % Neut # (Auto) 5.8 (1.8-7.0) K/uL Lymph # (Auto) 3.5 (1.0-4.3) K/uL [place] # (Auto) 0.7 (0.0-0.8) K/uL Eos # (Auto) 0.3 (0.0-0.7) K/uL Baso # (Auto) 0.1 (0.0-0.2) K/uL Sodium (132-148) mmol/L Potassium (3.6-5.2) mmol/L Chloride (98-107) mmol/L Carbon Dioxide (22-30) mmol/L Anion Gap (10-20) BUN (7-17) mg/dL Creatinine (0.7-1.2) mg/dL Est GFR ( Amer) Est GFR (Non-Af Amer) POC Glucose (mg/dL) 108 101 (65-110) mg/dL Random Glucose (65-105) mg/dL Hemoglobin A1c (4.2-6.5) % Calcium (8.6-10.4) mg/dl Phosphorus (2.5-4.5) mg/dL Magnesium (1.6-2.3) mg/dL Total Bilirubin (0.2-1.3) mg/dL AST (14-36) U/L ALT (9-52) U/L Alkaline Phosphatase (38-126) U/L Total Protein (6.3-8.3) g/dL Albumin (3.5-5.0) g/dL Globulin (2.2-3.9) gm/dL Albumin/Globulin Ratio (1.0-2.1) Triglycerides (0-149) mg/dL Cholesterol (0-199) mg/dL LDL Cholesterol Direct (0-129) mg/dL HDL Cholesterol (30-70) mg/dL Free T4 (0.78-2.19) ng/dL Laboratory Results - last 24 hr 05/08/18 05/08/18 05/09/18 16:16 21:14 03:06 WBC 10.3 RBC 4.28 Hgb 12.7 D Hct 37.9 MCV 88.6 MCH 29.8 MCHC 33.6 RDW 12.8 Plt Count 266 MPV 9.0 Neut % (Auto) 56.0 Lymph % (Auto) 34.2 [place] % (Auto) 6.5 Eos % (Auto) 2.7 Baso % (Auto) 0.6 Neut # (Auto) 5.8 Lymph # (Auto) 3.5 [place] # (Auto) 0.7 Eos # (Auto) 0.3 Baso # (Auto) 0.1 Sodium Potassium Chloride Carbon Dioxide Anion Gap BUN Creatinine Est GFR ( Amer) Est GFR (Non-Af Amer) POC Glucose (mg/dL) 101 108 Random Glucose Hemoglobin A1c Calcium Phosphorus Magnesium Total Bilirubin AST ALT Alkaline Phosphatase Total Protein Albumin Globulin Albumin/Globulin Ratio Triglycerides Cholesterol LDL Cholesterol Direct HDL Cholesterol Free T4 05/09/18 05/09/18 05/09/18 03:06 03:06 07:23 WBC RBC Hgb Hct MCV MCH MCHC RDW Plt Count MPV Neut % (Auto) Lymph % (Auto) [place] % (Auto) Eos % (Auto) Baso % (Auto) Neut # (Auto) Lymph # (Auto) [place] # (Auto) Eos # (Auto) Baso # (Auto) Sodium 144 Potassium 4.5 Chloride 108 H Carbon Dioxide 27 Anion Gap 14 BUN 15 Creatinine 0.8 Est GFR ( Amer) > 60 Est GFR (Non-Af Amer) > 60 POC Glucose (mg/dL) 88 Random Glucose 121 H Hemoglobin A1c 5.9 Calcium 8.8 Phosphorus 3.1 Magnesium 2.1 Total Bilirubin 0.3 AST 23 ALT 42 Alkaline Phosphatase 74 Total Protein 6.5 Albumin 3.7 Globulin 2.8 Albumin/Globulin Ratio 1.3 Triglycerides 253 H Cholesterol 159 LDL Cholesterol Direct 95 HDL Cholesterol 33 Free T4 05/09/18 05/09/18 05/09/18 07:53 11:14 16:17 WBC RBC Hgb Hct MCV MCH MCHC RDW Plt Count MPV Neut % (Auto) Lymph % (Auto) [place] % (Auto) Eos % (Auto) Baso % (Auto) Neut # (Auto) Lymph # (Auto) [place] # (Auto) Eos # (Auto) Baso # (Auto) Sodium Potassium Chloride Carbon Dioxide Anion Gap BUN Creatinine Est GFR ( Amer) Est GFR (Non-Af Amer) POC Glucose (mg/dL) 104 86 Random Glucose Hemoglobin A1c Calcium Phosphorus Magnesium Total Bilirubin AST ALT Alkaline Phosphatase Total Protein Albumin Globulin Albumin/Globulin Ratio Triglycerides Cholesterol LDL Cholesterol Direct HDL Cholesterol Free T4 0.81 Critical Care Progress Note - Nutrition Nutrition: Nutrition Category Date Time Status NPO Diet [DIET] Diets 05/09/18 Dinner Active Attending/Attestation - Attestation I have personally seen and examined this patient.: Yes I have fully participated in the care of the patient.: Yes I have reviewed all pertinent clinical information: Yes Notes (Text): 05/09/18 18:07 patient seen and examined Pending transfer to [facility] ablation for sick sinus syndrome continue present treatment for now
--- NOTE | 2018-05-09 12:28 | CARD ---
APPROVED REPORT Date of service: 05/08/2018 EXAM: Two-dimensional and M-mode echocardiogram with Doppler and color Doppler. Other Information Quality : Rhythm : Atrial Fibrillation INDICATION Palpitations SVT RISK FACTORS Hypertension Diabetes 2D DIMENSIONS IVSd1.1 (0.7-1.1cm)Aortic Root (2D)2.5 (2.0-3.7cm) LVDd3.4 (3.9-5.9cm)PWd0.9 (0.7-1.1cm) LA [id number] (18-58mL)LVDs2.3 (2.5-4.0cm) FS (%) 31.9 %LVEF (%)61.2 (>50%) LVEF (Vargas's)58 %IVC0.00 cm M-Mode DIMENSIONS RVDd1.67 (2.1-3.2cm)Left Atrium (MM)4.06 (2.5-4.0cm) IVSd0.73 (0.7-1.1cm)Aortic Root2.12 (2.2-3.7cm) LVDd4.75 (4.0-5.6cm)Aortic Cusp Exc.1.70 (1.5-2.0cm) PWd0.97 (0.7-1.1cm)FS (%) 52 % LVDs2.29 (2.0-3.8cm)LVEF (%)66 (>50%) Mitral Valve MV E Ugprxrcd306.6cm/sMV A Csdxvepx60.1cm/sE/A ratio3.2 TDI Lateral E' Peak V10.61cm/sMedial E' Peak V8.29cm/sE/Lateral E'10.4 E/Medial E'13.3 Tricuspid Valve TR Peak Ovngprox474ym/sTR Peak [id number] LEFT VENTRICLE The left ventricle is normal size. There is normal left ventricular wall thickness. The left ventricular function is normal. The left ventricular ejection fraction is within the normal range. There is normal LV segmental wall motion. RIGHT VENTRICLE The right ventricle is normal size. ATRIA The left atrium is borderline dilated. The right atrium size is normal. AORTIC VALVE The aortic valve is normal in structure. MITRAL VALVE Mitral regurgitation is trace. TRICUSPID VALVE There is mild tricuspid regurgitation. <Conclusion> Normal LV systolic function. Borderline dilated LA. Trace MR. Mild TR.
--- NOTE | 2018-05-09 13:25 | CARD ---
APPROVED REPORT Date of service: 05/08/2018 EKG Measurement Heart [id number] <Conclusion> Supraventricular tachycardia ST depression, consider subendocardial injury Nonspecific T wave abnormality Abnormal ECG
--- NOTE | 2018-05-09 16:15 | CP.PCM.CON ---
History of Present Illness - History of Present Illness History of Present Illness: EP Consult Reason for consult: SVT HPI: Patient is a 62 yo woman with hx of SVT (on metoprolola t home); HTN; pre- diabetes; who presented to [facility] with severe palpitations and dizziness x 1 day, and found to have atrial tachycardia at 180 bpm. She was given IV cardizem, converted to sinus, then subsequently developed hypotension to 60's with HR in 40's. SHe was given IV dopamine for this, which has now been weaned off. Her tele continues to show atrial tachycardia for 3-5 minutes at at a time. She is currently off AV kateryna blockers due to the severe hypotension she had earlier today. EP is now consulted by Dr. Dowd. PMH: as above ROS: as above SH: occasional tobacco, no etoh, no drugs FH: no premature CAD Meds: reviewed All: reviewed Past Patient History - Past Medical History & Family History Past Medical History?: Yes - Past Social History Smoking Status: Never Smoked - CARDIAC Hx Cardia Arrhythmia: Yes Hx Hypertension: Yes - PULMONARY Hx Respiratory Disorders: No - NEUROLOGICAL Hx Neurological Disorder: No - HEENT Hx HEENT Problems: Yes Other/Comment: HX: TORN EAR LOBE FROM EARING-REPAIRED - ENDOCRINE/METABOLIC Hx Endocrine Disorders: Yes Hx Diabetes Mellitus Type 2: Yes - INTEGUMENTARY Hx Dermatological Problems: Yes Other/Comment: HX: MASS OF NECK - PSYCHIATRIC Hx Substance Use: No - SURGICAL HISTORY Hx Surgeries: Yes Hx Hysterectomy: Yes Other/Comment: HX: REPAIR TORN EAR LOBE-PT. NOT SURE WHICH SIDE. - ANESTHESIA Hx Anesthesia: Yes Hx Anesthesia Reactions: No Hx Malignant Hyperthermia: No Meds Allergies/Adverse Reactions: Allergies Allergy/AdvReac Type Severity Reaction Status Date / Time No Known Allergies Allergy Verified 05/08/18 03:39 - Medications Medications: Current Medications Enoxaparin Sodium (Lovenox) 60 mg SC Q12 [facility] Last Admin: 05/09/18 10:01 Dose: 60 mg Dopamine HCl/Dextrose (Dopamine 400mg/250ml D5w) 400 mg in 250 mls @ 7.144 mls/hr IV .Q24H PRN; Protocol PRN Reason: PRN Last Titration: 05/09/18 03:00 Dose: 0 mcg/kg/min, 0 mls/hr Insulin Human Regular (Novolin R) 0 unit SC ACHS DEVIN; Protocol Last Admin: 05/09/18 11:30 Dose: Not Given Ketorolac Tromethamine (Toradol) 30 mg IVP Q6 PRN PRN Reason: FOR PAIN Lidocaine (Lidoderm) 2 ea TD DAILY [facility] Last Admin: 05/09/18 10:01 Dose: 2 ea [id number] Ethyl Esters (Lovaza) 1 gm PO DAILY [facility] Last Admin: 05/09/18 10:01 Dose: 1 gm Pantoprazole Sodium (Protonix Ec Tab) 40 mg PO DAILY [facility] Last Admin: 05/09/18 10:01 Dose: 40 mg Physical Exam - Constitutional Appears: Well - Head Exam Head Exam: ATRAUMATIC - Eye Exam Eye Exam: Normal appearance - ENT Exam ENT Exam: Mucous Membranes Moist - Respiratory Exam Respiratory Exam: Clear to Auscultation Bilateral, NORMAL BREATHING PATTERN - Cardiovascular Exam Cardiovascular Exam: REGULAR RHYTHM, +S1, +S2 - GI/Abdominal Exam GI & Abdominal Exam: Soft. absent: Tenderness - Extremities Exam Extremities exam: Positive for: normal inspection - Back Exam Back exam: NORMAL INSPECTION - Neurological Exam Neurological exam: Oriented x3 - Psychiatric Exam Psychiatric exam: Normal Affect - Skin Skin Exam: Normal Color Results - Vital Signs Recent Vital Signs: Last Vital Signs Temp 98.3 F 05/09/18 12:00 Pulse 64 05/09/18 16:00 Resp 11 L 05/09/18 13:00 BP 134/90 05/09/18 15:26 Pulse Ox 100 05/09/18 16:00 - Labs Result Diagrams: 05/09/18 03:06 05/09/18 03:06 Labs: Laboratory Results - last 24 hr 05/08/18 05/08/18 05/09/18 16:16 21:14 03:06 WBC 10.3 RBC 4.28 Hgb 12.7 D Hct 37.9 MCV 88.6 MCH 29.8 MCHC 33.6 RDW 12.8 Plt Count 266 MPV 9.0 Neut % (Auto) 56.0 Lymph % (Auto) 34.2 [place] % (Auto) 6.5 Eos % (Auto) 2.7 Baso % (Auto) 0.6 Neut # (Auto) 5.8 Lymph # (Auto) 3.5 [place] # (Auto) 0.7 Eos # (Auto) 0.3 Baso # (Auto) 0.1 Sodium Potassium Chloride Carbon Dioxide Anion Gap BUN Creatinine Est GFR ( Amer) Est GFR (Non-Af Amer) POC Glucose (mg/dL) 101 108 Random Glucose Hemoglobin A1c Calcium Phosphorus Magnesium Total Bilirubin AST ALT Alkaline Phosphatase Total Protein Albumin Globulin Albumin/Globulin Ratio Triglycerides Cholesterol LDL Cholesterol Direct HDL Cholesterol Free T4 05/09/18 05/09/18 05/09/18 03:06 03:06 07:23 WBC RBC Hgb Hct MCV MCH MCHC RDW Plt Count MPV Neut % (Auto) Lymph % (Auto) [place] % (Auto) Eos % (Auto) Baso % (Auto) Neut # (Auto) Lymph # (Auto) [place] # (Auto) Eos # (Auto) Baso # (Auto) Sodium 144 Potassium 4.5 Chloride 108 H Carbon Dioxide 27 Anion Gap 14 BUN 15 Creatinine 0.8 Est GFR ( Amer) > 60 Est GFR (Non-Af Amer) > 60 POC Glucose (mg/dL) 88 Random Glucose 121 H Hemoglobin A1c 5.9 Calcium 8.8 Phosphorus 3.1 Magnesium 2.1 Total Bilirubin 0.3 AST 23 ALT 42 Alkaline Phosphatase 74 Total Protein 6.5 Albumin 3.7 Globulin 2.8 Albumin/Globulin Ratio 1.3 Triglycerides 253 H Cholesterol 159 LDL Cholesterol Direct 95 HDL Cholesterol 33 Free T4 05/09/18 05/09/18 07:53 11:14 WBC RBC Hgb Hct MCV MCH MCHC RDW Plt Count MPV Neut % (Auto) Lymph % (Auto) [place] % (Auto) Eos % (Auto) Baso % (Auto) Neut # (Auto) Lymph # (Auto) [place] # (Auto) Eos # (Auto) Baso # (Auto) Sodium Potassium Chloride Carbon Dioxide Anion Gap BUN Creatinine Est GFR ( Amer) Est GFR (Non-Af Amer) POC Glucose (mg/dL) 104 Random Glucose Hemoglobin A1c Calcium Phosphorus Magnesium Total Bilirubin AST ALT Alkaline Phosphatase Total Protein Albumin Globulin Albumin/Globulin Ratio Triglycerides Cholesterol LDL Cholesterol Direct HDL Cholesterol Free T4 0.81 - Impressions Impression: EKG: SR, NSST's Assessment & Plan - Assessment and Plan (Free Text) Assessment: 1. Symptomatic paroxysmal ATach -- Occasionally degenerates into atrial fibrillation on tele monitor Plan: Due to excessive hypotension and bradycardia with AV kateryna blockers, I recommend an EP study and SVT ablation. Of note, it is possible her atrial tachycardia is originating from one the of the pulmonary veins, in which case pulmonary vein isolation ablation would be required. Over 30 minutes were spent discussing the risks and benefits of an ablation procedure. I explained to her the risks inc lude but are not limited to bleeding, infection, neurovascular injury, cardiac arrest, stroke, cardiac perforation, esophageal injury or lung injury. The patient verbally understood and elected to proceed with the procedure. She will need to be transferred to [facility] for SVT ablation. Please d/c all AV kateryna blockers. Hold Lovenox tonight. Keep NPO after midnight.
--- NOTE | 2018-05-09 18:27 | CP.PCM.PN ---
Subjective - Date & Time of Evaluation Date of Evaluation: 05/09/18 Time of Evaluation: 18:25 - Subjective Subjective: no cp no sob does have occ palpitations Objective - Vital Signs/Intake and Output Vital Signs (last 24 hours): Temp Pulse Resp BP Pulse Ox 98.9 F 64 18 134/90 100 05/09/18 16:00 05/09/18 16:00 05/09/18 16:00 05/09/18 15:26 05/09/18 16:00 Intake and Output: 05/09/18 05/09/18 06:59 18:59 Intake Total 1433.2 1000 Output Total 500 1550 Balance 933.2 -550 - Medications Medications: Current Medications Enoxaparin Sodium (Lovenox) 60 mg SC Q12 [facility] Last Admin: 05/09/18 10:01 Dose: 60 mg Dopamine HCl/Dextrose (Dopamine 400mg/250ml D5w) 400 mg in 250 mls @ 7.144 mls/hr IV .Q24H PRN; Protocol PRN Reason: PRN Last Titration: 05/09/18 03:00 Dose: 0 mcg/kg/min, 0 mls/hr Insulin Human Regular (Novolin R) 0 unit SC ACHS [facility]IN; Protocol Last Admin: 05/09/18 16:36 Dose: Not Given Ketorolac Tromethamine (Toradol) 30 mg IVP Q6 PRN PRN Reason: FOR PAIN Lidocaine (Lidoderm) 2 ea TD DAILY [facility] Last Admin: 05/09/18 10:01 Dose: 2 ea [id number] Ethyl Esters (Lovaza) 1 gm PO DAILY [facility] Last Admin: 05/09/18 10:01 Dose: 1 gm Pantoprazole Sodium (Protonix Ec Tab) 40 mg PO DAILY [facility] Last Admin: 05/09/18 10:01 Dose: 40 mg - Labs Labs: 05/09/18 03:06 05/09/18 03:06 PT 12.5 SECONDS (9.7-12.2) H 05/08/18 11:47 INR 1.1 05/08/18 11:47 APTT 42 SECONDS (21-34) H 05/08/18 11:47 - Constitutional Appears: Well, No Acute Distress - Head Exam Head Exam: ATRAUMATIC - Eye Exam Eye Exam: Normal appearance - Respiratory Exam Respiratory Exam: Clear to Ausculation Bilateral, NORMAL BREATHING PATTERN - Cardiovascular Exam Cardiovascular Exam: Tachycardia, +S1, +S2 - GI/Abdominal Exam GI & Abdominal Exam: Soft, Normal Bowel Sounds. absent: Tenderness, Organomegaly - Neurological Exam Neurological Exam: Alert, Awake, Oriented x3 Assessment and Plan - Assessment and Plan (Free Text) Assessment: Symptomatic atrial fibrillation Plan EP for ablation at [facility] [place] management per ICU
[2018-05-09 20:57] VITALS: TEMP 98.3
[2018-05-09 21:05] VITALS: BP 124/78; PULSE 56; RESP 14; O2SAT 99
--- NOTE | 2018-05-10 08:54 | CP.PCM.DIS ---
Provider - Provider Date of Admission: 05/08/18 06:00 Attending physician: Dom Montenegro MD Time Spent in preparation of Discharge (in minutes): 45 Diagnosis - Discharge Diagnosis (1) Sick sinus syndrome Status: Acute Hospital Course - Lab Results Lab Results: Micro Results 05/08/18 14:46 Naris MRSA Culture (Admit) - Final MRSA NOT DETECTED Most Recent Lab Values WBC 10.3 K/uL (4.8-10.8) 05/09/18 03:06 RBC 4.28 Mil/uL (3.80-5.20) 05/09/18 03:06 Hgb 12.7 g/dL (11.0-16.0) D 05/09/18 03:06 Hct 37.9 % (34.0-47.0) 05/09/18 03:06 MCV 88.6 fL (81.0-99.0) 05/09/18 03:06 MCH 29.8 pg (27.0-31.0) 05/09/18 03:06 MCHC 33.6 g/dL (33.0-37.0) 05/09/18 03:06 RDW 12.8 % (11.5-14.5) 05/09/18 03:06 Plt Count 266 K/uL (130-400) 05/09/18 03:06 MPV 9.0 fL (7.2-11.7) 05/09/18 03:06 Neut % (Auto) 56.0 % (50.0-75.0) 05/09/18 03:06 Lymph % (Auto) 34.2 % (20.0-40.0) 05/09/18 03:06 [place] % (Auto) 6.5 % (0.0-10.0) 05/09/18 03:06 Eos % (Auto) 2.7 % (0.0-4.0) 05/09/18 03:06 Baso % (Auto) 0.6 % (0.0-2.0) 05/09/18 03:06 Neut # (Auto) 5.8 K/uL (1.8-7.0) 05/09/18 03:06 Lymph # (Auto) 3.5 K/uL (1.0-4.3) 05/09/18 03:06 [place] # (Auto) 0.7 K/uL (0.0-0.8) 05/09/18 03:06 Eos # (Auto) 0.3 K/uL (0.0-0.7) 05/09/18 03:06 Baso # (Auto) 0.1 K/uL (0.0-0.2) 05/09/18 03:06 PT 12.5 SECONDS (9.7-12.2) H 05/08/18 11:47 INR 1.1 05/08/18 11:47 APTT 42 SECONDS (21-34) H 05/08/18 11:47 D-Dimer, Quantitative < 200 ng/mlDDU (0-243) 05/08/18 11:47 Sodium 144 mmol/L (132-148) 05/09/18 03:06 Potassium 4.5 mmol/L (3.6-5.2) 05/09/18 03:06 Chloride 108 mmol/L (98-107) H 05/09/18 03:06 Carbon Dioxide 27 mmol/L (22-30) 05/09/18 03:06 Anion Gap 14 (10-20) 05/09/18 03:06 BUN 15 mg/dL (7-17) 05/09/18 03:06 Creatinine 0.8 mg/dL (0.7-1.2) 05/09/18 03:06 Est GFR ( Amer) > 60 05/09/18 03:06 Est GFR (Non-Af Amer) > 60 05/09/18 03:06 POC Glucose (mg/dL) 86 mg/dL (65-110) 05/09/18 16:17 Random Glucose 121 mg/dL (65-105) H 05/09/18 03:06 Hemoglobin A1c 5.9 % (4.2-6.5) 05/09/18 03:06 Calcium 8.8 mg/dl (8.6-10.4) 05/09/18 03:06 Phosphorus 3.1 mg/dL (2.5-4.5) 05/09/18 03:06 Magnesium 2.1 mg/dL (1.6-2.3) 05/09/18 03:06 Total Bilirubin 0.3 mg/dL (0.2-1.3) 05/09/18 03:06 AST 23 U/L (14-36) 05/09/18 03:06 ALT 42 U/L (9-52) 05/09/18 03:06 Alkaline Phosphatase 74 U/L (38-126) 05/09/18 03:06 Troponin I < 0.0120 ng/mL (0.00-0.120) 05/08/18 04:01 Total Protein 6.5 g/dL (6.3-8.3) 05/09/18 03:06 Albumin 3.7 g/dL (3.5-5.0) 05/09/18 03:06 Globulin 2.8 gm/dL (2.2-3.9) 05/09/18 03:06 Albumin/Globulin Ratio 1.3 (1.0-2.1) 05/09/18 03:06 Triglycerides 253 mg/dL (0-149) H 05/09/18 03:06 Cholesterol 159 mg/dL (0-199) 05/09/18 03:06 LDL Cholesterol Direct 95 mg/dL (0-129) 05/09/18 03:06 HDL Cholesterol 33 mg/dL (30-70) 05/09/18 03:06 Free T4 0.81 ng/dL (0.78-2.19) 05/09/18 07:53 Total T3 1.97 nmol/L (1.49-2.60) 05/08/18 04:01 TSH 3rd Generation 6.97 mIU/L (0.46-4.68) H 05/08/18 04:01 - Hospital Course Hospital Course: History and Physical - Hospitalist Service CC: Palpitations HPI: Patient is a 62 year old female with past medical history of hypertension, diabetes mellitus, arthritis who presented to the emergency room for sudden onset of palpitations. Patient states that she recently stopped taking her Metoprolol 5 days ago after switching PMDs. Patient denies any fevers/chills, nausea/vomiting, headaches, dizziness, cp, shortness of breath, abdominal pain, urinary symptoms, changes in bowel habits. 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 Pt received Cardizem 20mg IVP x 1, Digoxin 0.5mg x 1, Lopressor 5mg, NS bolus 2L, Cardizem drip in ED Pt rate was controlled and started on 60mg cardizem PO as per Dr Dowd request. Pt had a hypotensive episode 05/08 8pm: 60/47 bp requiring one dose of Dopa 400 @ 3mc. Pt responded with RVRs so dopa was stopped after 1 dose. pt improved. Entry Level [employer] Assistant Dr Fuentes consulted for ablation. Tele continued to show atrial tachycardia for 3-5 minutes at at a time. Transfer[place] [facility] [place]. d/c all AV kateryna blockers. Hold Lovenox 05/09. Kept NPO after midnight. Due to excessive hypotension and bradycardia with AV kateryna blockers, recommended an EP study and SVT ablation. DIAGNOSTICS: Echo 05/08- afib, EF 58% EKG 05/08- SVT CXR 05/08- mild cardiomegaly, venous congestion this is a summary please refer to [employer] for full reports. Discharge Exam - Head Exam Head Exam: ATRAUMATIC - Additional Findings Additional findings: - Constitutional Constitutional: absent: Fever, Chills - EENT Eyes: absent: Change in Vision - Cardiovascular Cardiovascular: Irregular rhythm absent: Chest Pain, Diaphoresis, Dyspnea, Pain Radiating to Arm/Neck/Jaw, Leg Edema, Pedal Edema - Respiratory Respiratory: UNREMARKABLE - Gastrointestinal Gastrointestinal: UNREMARKABLE - Musculoskeletal Musculoskeletal: Myalgias (lumbar paraspinals) - Neurological Neurological: absent: Dizziness, Numbness, Focal Weakness, Headaches, Syncope - Psychiatric Psychiatric: UNREMARKABLE - Endocrine Endocrine: UNREMARKABLE - Hematologic/Lymphatic Hematologic: UNREMARKABLE Discharge Plan - Follow Up Plan Condition: GUARDED Disposition: Trans to Other Acute Care Hosp
[2018-05-10 21:35] LABS: THYROGLOBULIN 13.5 ng/mL (2.8-40.9)
== END 2018-05-09 23:30 | disposition short-term general hospital (02) | DRG 139 ==
LOC: C.ER 03:23 → C.9E 06:00 → C.5S 11:21 → C.9E 11:30 → C.9I 12:15
PROVIDERS: ADMIT Internal Medicine; ATTEND Internal Medicine
DX: I47.1 Supraventricular tachycardia (principal); E11.9 Type 2 diabetes mellitus without complications; I10 Essential (primary) hypertension; I44.0 Atrioventricular block, first degree; F17.210 Nicotine dependence, cigarettes, uncomplicated; E78.5 Hyperlipidemia, unspecified; I48.91 Unspecified atrial fibrillation; I49.5 Sick sinus syndrome; I95.9 Hypotension, unspecified